=== PATIENT | female | born 1965 | race Caucasian/White ===

== ENCOUNTER 2017-09-16 07:30 | Day surgery (SDC) | payer OTHER ==
[2017-09-16] MEDS ORDERED: CEFAZOLIN 2 GM/50 ML (PMX) 50 ML IVPB (08:00)
[2017-09-16] MEDS ORDERED: SOD CHLORIDE 0.9% 1,000 ML IV (08:00)
[2017-09-16] MEDS ORDERED: CEFAZOLIN 1 GM INJ (08:04)
[2017-09-16] MEDS ORDERED: PROPOFOL 20 ML (08:04)
[2017-09-16] MEDS ORDERED: GLYCOPYRROLATE 0.4 MG INJ (08:04)
[2017-09-16] MEDS ORDERED: ROCURONIUM 50 MG INJ (08:04)
[2017-09-16] MEDS ORDERED: FENTAnyl 50 MCG/ML VIAL (08:04)
[2017-09-16] MEDS ORDERED: NEOSTIGMINE 3 MG/3 ML SYRINGE (08:04)
[2017-09-16] MEDS ORDERED: MIDAZOLAM 1 MG/ML 2 ML INJ (08:04)
[2017-09-16] MEDS ORDERED: ONDANSETRON 4 MG INJ (08:05)
[2017-09-16] MEDS ORDERED: ROPIVACAINE 0.5 % 30 ML VIAL (08:05)
[2017-09-16] MEDS ORDERED: DEXAMETHASONE 4 MG/ML 1 ML INJ (08:05)
[2017-09-16] MEDS ORDERED: POLYMYXIN/BACITRACIN 1L IRRIG (08:45)
[2017-09-16] MEDS ORDERED: BUPIVACAINE 0.5%/EPI (SDV) 30 ML INJ (08:45)
[2017-09-16] MEDS: BUPIVACAINE 0.5%/EPI (SDV) 30 ML INJ INJ (08:55)
[2017-09-16] MEDS: POLYMYXIN/BACITRACIN 1L IRRIG IRR (08:55)
[2017-09-16] MEDS ORDERED: SUGAMMADEX SODIUM 200 MG/2 ML VIAL IV (10:15)
[2017-09-16] MEDS ORDERED: KETOROLAC 30 MG INJ (10:28)
[2017-09-16] MEDS ORDERED: MIDAZOLAM 1 MG/ML 2 ML INJ IV (10:30)
[2017-09-16] MEDS ORDERED: DIPHENHYDRAMINE 50 MG INJ IV (10:30)
[2017-09-16] MEDS ORDERED: ONDANSETRON 4 MG INJ IV (10:30)
[2017-09-16] MEDS ORDERED: ALBUTEROL 0.083% (NEB) 2.5 MG/3 ML AMP HHN (10:30)
[2017-09-16] MEDS ORDERED: IPRATROPIUM (NEB) 0.5 MG/2.5 ML AMP HHN (10:30)
[2017-09-16] MEDS ORDERED: EPHEDrine SULFATE 50 MG/5 ML SYG IV (10:30)
[2017-09-16] MEDS ORDERED: LABETALOL HCL 20MG INJ IV (10:30)
[2017-09-16] MEDS ORDERED: HYDROmorphONE 1 MG/5 ML IV SYRINGE IV ×3 (10:30)
[2017-09-16] MEDS ORDERED: hydrALAzine 20 MG INJ IV (10:30)
[2017-09-16] MEDS ORDERED: OXYCODONE/ACETAMINOPHEN (5/325) TAB PO ×2 (10:30)
[2017-09-16] MEDS ORDERED: TRIMETHOBENZAMIDE 100 MG/ML VIAL IM (10:30)
[2017-09-16] MEDS ORDERED: FENTAnyl 50 MCG/ML VIAL IV ×3 (10:30)
[2017-09-16] MEDS: MEPERIDINE 25 MG INJ IV (11:01)
== END 2017-09-16 12:35 | disposition home or self-care (01) ==
LOC: SDS 07:30
DX: K40.90 Unilateral inguinal hernia, without obstruction or gangrene, not specified as recurrent (principal); R00.1 Bradycardia, unspecified; M41.9 Scoliosis, unspecified
CPT/HCPCS: 49507; 71045; 84703; 93005